=== PATIENT | female | born 1950 | race Caucasian/White ===

== ENCOUNTER 2017-10-22 22:38 | Observation (INO) | payer MEDICARE ==
[~2017-10-22] VITALS: Ht 167.6 cm; Wt 90.4 kg
[~2017-10-22 22:38] MED LIST: 1-ME1LIQ PO; AMBI12.5 PO; HYDR12.56 PO; PRED50 PO; RANI300T PO; TELM1TAB56 PO
[2017-10-22 22:40] VITALS: BP 128/60; PULSE 119; RESP 18; TEMP 97.9; O2SAT 97
[2017-10-22] MEDS ORDERED: AMBI12.5 PO (22:59)
[2017-10-22] MEDS ORDERED: MELO15TA20 PO (22:59)
[2017-10-22] MEDS ORDERED: AMLO5TAB2 PO (22:59)
[2017-10-22] MEDS ORDERED: HYDR12.57 PO (22:59)
[2017-10-22] MEDS ORDERED: SODIUM CHLOR 0.9% 1000 ML INJ 1,000 ML IV ONE (23:04)
--- NOTE | 2017-10-22 23:09 | PD ---
HPI Chief Complaint: GI Complaint Time Seen by Provider: 22:49 Travel History International Travel<30 days: No Contact w/Intl Traveler<30days: No Traveled to known affect area: No History of Present Illness HPI 67-year-old female presents to the emergency department by private transportation for complaint of nausea vomiting abdominal pain with diarrhea and headaches since 7 PM. Patient denies any dietary indiscretion well water ingestion or foreign travel. No recent antibiotic use. Spouse has had no similar symptoms. Sister recently returned from a cruise. Headache is not sudden onset thunderclap or worst ever. No respiratory illness symptoms no sore throat no earache no sinus pressure drainage no cough no congestion no shortness of breath and no chest pain. Patient has had bilious emesis no report of coffee-ground emesis or hematemesis and no melena or hematochezia. Patient also denies any flank pain; but has had some dysuria does not report any urinary frequency urgency or hematuria. No prior similar symptoms. No injury or fall. Patient states she felt completely well on Monday all day Monday and all day on Monday until 7 PM when symptoms began. Patient denies any fever or chills. Patient has taken no medications to assist with symptoms. No ibuprofen or acetaminophen. Patient is unable to identify exacerbating or alleviating factors. Patient does have history of hypertension and previous cholecystectomy. [facility] Past Medical History Narrative Medical Anemia arthritis dyslipidemia hypertension pancreatitis cholecystectomy anxiety depression hysterectomy breast augmentation cardiac catheterization; no tobacco ; nursing notes reviewed Anemia: Yes Arthritis: Yes Anxiety: Yes Depression: Yes Cardiac Catheterization: Yes Cardiovascular Problems: Yes (HTN) High Cholesterol: Yes Diminished Hearing: No Herniated Disk: Yes (LUMBAR) Hypertension: Yes Pancreatitis: Yes Tetanus Vaccination: < 5 Years Influenza Vaccination: Yes ?: Not Menopausal: Yes : 2 Para: 1 Past Surgical History Section: Yes Cholecystectomy: Yes Hysterectomy: Yes (Complete) Other Surgery: Yes (BREAST AUGMENTATION) Social History Alcohol Use: No Tobacco Use: No (QUIT 1991) Substance Use: No Allergies-Medications (Allergen,Severity, Reaction): Coded Allergies: No Known Allergies (Verified Adverse Reaction, Unknown, 10/22/17) Reported Meds & Prescriptions Reported Meds & Active Scripts Active Reported Meloxicam 15 Mg Tab 15 Mg PO DAILY Amlodipine (Amlodipine Besylate) 5 Mg Tab 5 Mg PO DAILY Ambien CR (Zolpidem Tartrate) 12.5 Mg Tab 12.5 Mg PO HS PRN Hydrochlorothiazide 12.5 Mg Cap 12.5 Mg PO DAILY Review of Systems Except as stated in HPI: all other systems reviewed are Neg General / Constitutional: No: Fever, Chills HENT: No: Congestion Cardiovascular: No: Chest Pain or Discomfort Respiratory: No: Shortness of Breath Gastrointestinal: Positive: Nausea, Vomiting, Diarrhea, Abdominal Pain Genitourinary: Positive: Dysuria Musculoskeletal: No: Myalgias, Arthralgias Skin: No Rash Neurologic: No: Weakness Psychiatric: No: Anxiety Hematologic/Lymphatic: No: Lymph Node Enlargement Physical Exam Narrative GENERAL: Well-developed nourished female no acute distress or respiratory distress SKIN: Warm and dry. HEAD: Normocephalic. EYES: No scleral icterus. No injection or drainage. NECK: Supple, trachea midline. No JVD or lymphadenopathy. CARDIOVASCULAR: Regular rate and rhythm without murmurs, gallops, or rubs. RESPIRATORY: Breath sounds equal bilaterally. No accessory muscle use. GASTROINTESTINAL: Abdomen soft, non-tender, well-healed cholecystectomy scar right upper quadrant, nondistended. MUSCULOSKELETAL: No cyanosis, or edema. BACK: Nontender without obvious deformity. No CVA tenderness. Data Data Last Documented VS Vital Signs Date Time Temp Pulse Resp B/P (MAP) Pulse Ox O2 Delivery O2 Flow Rate FiO2 10/23/17 01:44 98.8 92 18 139/63 (88) 96 Room Air Orders Orders Complete Blood Count With Diff (10/22/17 23:04) Comprehensive Metabolic Panel (10/22/17 23:04) Urinalysis - C+S If Indicated (10/22/17 23:04) Lipase (10/22/17 23:04) Iv Access Insert/Monitor (10/22/17 23:04) Ecg Monitoring (10/22/17 23:04) Oximetry (10/22/17 23:04) Ondansetron Inj (Zofran Inj) (10/22/17 23:15) Sodium Chlor 0.9% 1000 Ml Inj (Ns 1000 M (10/22/17 23:04) Sodium Chloride 0.9% Flush (Ns Flush) (10/22/17 23:15) Blood Culture (10/22/17 23:04) Enteric Path (Stool) (10/22/17 23:04) Lactic Acid (10/22/17 23:04) Ketorolac Inj (Toradol Inj) (10/22/17 23:15) Magnesium (Mg) (10/22/17 23:04) C Diff Toxin Pcr (10/22/17 23:24) Sodium Chlor 0.9% 1000 Ml Inj (Ns 1000 M (10/23/17 00:15) Ct Abd/Pel W Iv Contrast(Rout) (10/23/17 ) Sodium Chlor 0.9% 1000 Ml Inj (Ns 1000 M (10/23/17 01:30) Lactic Acid (10/23/17 01:23) Piperacil-Tazo 4.5 Gm Premix (Zosyn 4.5 (10/23/17 01:30) Iohexol 350 Inj (Omnipaque 350 Inj) (10/23/17 01:36) Labs Laboratory Tests Test 10/22/17 23:15 10/22/17 23:20 White Blood Count 14.0 TH/MM3 Red Blood Count 4.61 MIL/MM3 Hemoglobin 13.7 GM/DL Hematocrit 41.1 % Mean Corpuscular Volume 89.2 FL Mean Corpuscular Hemoglobin 29.8 PG Mean Corpuscular Hemoglobin Concent 33.4 % Red Cell Distribution Width 12.6 % Platelet Count 192 TH/MM3 Mean Platelet Volume 7.1 FL Neutrophils (%) (Auto) 85.9 % Lymphocytes (%) (Auto) 3.1 % Monocytes (%) (Auto) 6.1 % Eosinophils (%) (Auto) 2.8 % Basophils (%) (Auto) 2.1 % Neutrophils # (Auto) 12.0 TH/MM3 Lymphocytes # (Auto) 0.4 TH/MM3 Monocytes # (Auto) 0.9 TH/MM3 Eosinophils # (Auto) 0.4 TH/MM3 Basophils # (Auto) 0.3 TH/MM3 CBC Comment AUTO DIFF Differential Comment AUTO DIFF CONFIRMED Platelet Estimate NORMAL Platelet Morphology Comment NORMAL Red Cell Morphology Comment NORMAL Blood Urea Nitrogen 19 MG/DL Creatinine 1.00 MG/DL Random Glucose 173 MG/DL Total Protein 6.9 GM/DL Albumin 3.7 GM/DL Calcium Level 8.6 MG/DL Magnesium Level 1.8 MG/DL Alkaline Phosphatase 78 U/L Aspartate Amino Transf (AST/SGOT) 19 U/L Alanine Aminotransferase (ALT/SGPT) 28 U/L Total Bilirubin 0.3 MG/DL Sodium Level 143 MEQ/L Potassium Level 3.5 MEQ/L Chloride Level 109 MEQ/L Carbon Dioxide Level 25.9 MEQ/L Anion Gap 8 MEQ/L Estimat Glomerular Filtration Rate 55 ML/MIN Lactic Acid Level 2.6 mmol/L Lipase 202 U/L [facility] Medical Decision Making Medical Screen Exam Complete: Yes Emergency Medical Condition: Yes Medical Record Reviewed: Yes Interpretation(s) CBC & BMP Diagram 10/22/17 23:15 Total Protein 6.9, Albumin 3.7, Calcium Level 8.6, Magnesium Level 1.8, Alkaline Phosphatase 78, Aspartate Amino Transf (AST/SGOT) 19, Alanine Aminotransferase (ALT/SGPT) 28, Total Bilirubin 0.3 Vital Signs Date Time Temp Pulse Resp B/P (MAP) Pulse Ox O2 Delivery O2 Flow Rate FiO2 10/23/17 00:20 94 18 134/56 (82) 95 Room Air 10/22/17 23:45 93 18 133/56 (81) 98 Room Air 10/22/17 22:40 97.9 119 18 128/60 (82) 97 Lactic acid: 2.6, elevated Differential Diagnosis Gastroenteritis, food poisoning, viral syndrome, electrolyte disturbance, GI bleed, anemia, ACS, dehydration, pancreatitis, gastritis Narrative Course Patient placed on monitor IV access obtained specimens collected and sent for resulting patient administered 1 L normal saline Zofran 4 mg IV and Toradol 30 mg IV Patient produced a specimen that was briskly Hemoccult positive but not grossly bloody stool specimen sent for enteric pathogen and PCR C. difficile; briskly Hemoccult positive CT urinalysis results pending patient given additional liter of normal saline and repeat lactic acid ordered HemaPrompt Point of Care Internal Pos. & Neg. Controls: Passed Fecal Specimen Occult Blood: Positive Sepsis Criteria SIRS Criteria (2 or more): Heart rate over 90, WBC > 11281, < 4000 or > 10% bands Sepsis Criteria (SIRS+source): Infect source susp/known (GI-gastroenteritis) Severe Sepsis (+one): Lactate >2 Physician Communication Physician Communication discussed with [facility] MD Diagnosis Primary Impression: Abdominal pain Qualified Codes: R10.30 - Lower abdominal pain, unspecified Additional Impressions: Abdominal pain, vomiting, and diarrhea Sepsis Admitting Information Admitting Physician Requests: Observation Sophia Guerrero. MD Oct 22, 2017 23:09
[2017-10-22] MEDS ORDERED: SODIUM CHLORIDE 0.9% FLUSH 10 ML FLUSH IVF PRN (23:15)
[2017-10-22] MEDS ORDERED: ONDANSETRON HCL 4 MG/2 ML VIAL IV PUSH ONE (23:15)
[2017-10-22] MEDS ORDERED: KETOROLAC TROMETHAMINE 30 MG/ML (IVP) VIAL IV PUSH ONE (23:15)
[2017-10-22 23:45] VITALS: BP 133/56; PULSE 83; PULSE 93; RESP 18; O2SAT 98
[2017-10-22 23:46] LABS: CHLORIDE 109 MEQ/L (98-107); SODIUM (NA) 143 MEQ/L (136-145)
[2017-10-22 23:47] LABS: BASOPHIL # 0.3 TH/MM3 (0-0.2); BASOPHIL % 2.1 % (0.0-2.0); EOSINOPHIL # 0.4 TH/MM3 (0-0.4); EOSINOPHIL % 2.8 % (0.0-4.0); HEMATOCRIT 41.1 % (35.0-46.0); HEMOGLOBIN 13.7 GM/DL (11.6-15.3); LYMPH % 3.1 % (9.0-44.0); LYMPHOCYTE # 0.4 TH/MM3 (1.0-4.8); MEAN CELL VOLUME 89.2 FL (80.0-100.0); MEAN CORPUSCULAR HEMOGLOBIN 29.8 PG (27.0-34.0); MEAN CORPUSCULAR HGB CONC 33.4 % (32.0-36.0); MEAN PLATELET VOLUME 7.1 FL (7.0-11.0); MONO % 6.1 % (0.0-8.0); MONOCYTE # 0.9 TH/MM3 (0-0.9); NEUT % 85.9 % (16.0-70.0); PLATELET COUNT 192 TH/MM3 (150-450); RED BLOOD COUNT 4.61 MIL/MM3 (4.00-5.30); RED CELL DISTRIBUTION WIDTH 12.6 % (11.6-17.2)
[2017-10-22 23:50] LABS: ALBUMIN 3.7 GM/DL (3.4-5.0); BICARBONATE 25.9 MEQ/L (21.0-32.0); BLOOD UREA NITROGEN 19 MG/DL (7-18); CALCIUM 8.6 MG/DL (8.5-10.1); GLUCOSE,RANDOM 173 MG/DL (74-106); MAGNESIUM 1.8 MG/DL (1.5-2.5)
[2017-10-22 23:53] LABS: ALT (GPT) 28 U/L (10-53); AST (GOT) 19 U/L (15-37); GLOMERULAR FILTRATION RATE 55 ML/MIN (>89)
[2017-10-22 23:54] LABS: TOTAL BILIRUBIN ADULT 0.3 MG/DL (0.2-1.0)
[2017-10-22 23:55] LABS: TOTAL PROTEIN 6.9 GM/DL (6.4-8.2)
[2017-10-22 23:56] LABS: ALKALINE PHOSPHATASE 78 U/L (45-117)
[2017-10-23] VITALS (7 sets, daily range): BP systolic 131–162; BP diastolic 56–73; PULSE 83–97; RESP 16–20; TEMP 98.4–99.1; O2SAT 95–96
[2017-10-23] MEDS ORDERED: SODIUM CHLOR 0.9% 1000 ML INJ 1,000 ML IV ONE ×2 (00:15→01:30)
[2017-10-23] MEDS ORDERED: PIPERACIL-TAZO 4.5 GM PREMIX 100 ML IV ONE (01:30)
[2017-10-23] MEDS ORDERED: IOHEXOL 350 MG/ML 10 ML VIAL (for RAD DIAG) IVCONTRAST ONE (01:36)
--- NOTE | 2017-10-23 01:39 | RADRPT ---
EXAM DATE/TIME: 10/23/2017 01:18 [place] COMPARISON: No previous studies available for comparison. INDICATIONS : Nausea. Vomiting. Diarrhea. IV CONTRAST: 75 cc Omnipaque 350 (iohexol) IV ORAL CONTRAST: No oral contrast ingested. RADIATION DOSE: 16.91 CTDIvol (mGy) MEDICAL HISTORY : Pancreatitis. Hypertension. SURGICAL HISTORY : Cholecystectomy. section.Hysterectomy. ENCOUNTER: Initial ACUITY: 1 day PAIN SCALE: 2/10 LOCATION: upper quadrant lower quadrant TECHNIQUE: Volumetric scanning of the abdomen and pelvis was performed. Using automated exposure control and ad justment of the mA and/or kV according to patient size, radiation dose was kept as low as reasonably achievable to obtain optimal diagnostic quality images. DICOM format image data is available electro nically for review and comparison. FINDINGS: Lung bases are clear except for minimal dependent atelectasis. Mild fatty liver. Spleen, adrenals, ki dneys pancreas unremarkable. No free fluid. No bowel obstruction. No adenopathy. CONCLUSION: 1. No acute findings within the abdomen and pelvis. Mild fatty liver. Small hiatal hernia. Joe Canales MD on October 23, 2017 at 1:36 Board Certified Radiologist. This report was verified electronically.
[2017-10-23] MEDS ORDERED: SODIUM CHLOR 0.9% 1000 ML INJ 1,000 ML IV SCH (02:16)
[2017-10-23 02:18] LABS: BILIRUBIN, URINE NEG (NEG); BLOOD, URINE NEG (NEG); GLUCOSE,URINE NEG (NEG); KETONE, URINE NEG (NEG); NITRITE,URINE NEG (NEG); PH, URINE 5.5 (5.0-8.5); URINE COLOR YELLOW (YELLW/STRAW); URINE LEUKOCYTE ESTERASE NEG (NEG)
[2017-10-23 02:30] LABS: MUCUS URINE FEW /lpf (OCC); SQUAMOUS EPITHELIAL CELL URINE 0-5 /hpf (0-5)
[2017-10-23] MEDS ORDERED: LACTULOSE SYRUP 20 GM/30 ML CUP PO PRN (02:30)
[2017-10-23] MEDS ORDERED: ACETAMINOPHEN 325 MG TAB PO PRN ×2 (02:30→09:30)
[2017-10-23] MEDS ORDERED: BISACODYL 10 MG SUPP RECTAL PRN (02:30)
[2017-10-23] MEDS ORDERED: SENNOSIDES 8.6 MG TAB PO PRN (02:30)
[2017-10-23] MEDS ORDERED: SODIUM CHLORIDE 0.9% FLUSH 10 ML FLUSH IV FLUSH PRN (02:30)
[2017-10-23] MEDS ORDERED: NALOXONE HCL 0.4 MG/ML AMP IV PUSH PRN (02:30)
[2017-10-23] MEDS ORDERED: MORPHINE SULFATE 2 MG/ML SYRINGE IV PUSH PRN (02:30)
[2017-10-23] MEDS ORDERED: HEPARIN SODIUM - SQ 10,000 UNITS/ML VIAL SQ SCH ×2 (02:30→09:00)
[2017-10-23] MEDS ORDERED: MAGNESIUM HYDROXIDE SUSP 30 ML CUP PO PRN (02:30)
[2017-10-23 02:31] LABS: WBC, URINE 0-2 /hpf (0-5)
[2017-10-23] MEDS: ONDANSETRON HCL 4 MG/2 ML VIAL IVP PRN ×2 (03:32→09:31)
[2017-10-23] MEDS ORDERED: SODIUM CHLORIDE 0.9% FLUSH 10 ML FLUSH IV FLUSH SCH (09:00)
[2017-10-23] MEDS ORDERED: DOCUSATE SODIUM 50 MG/SENNA 8.6 MG TAB PO SCH (09:00)
[2017-10-23] MEDS ORDERED: ZOLPIDEM 12.5 MG PO PRN (11:30)
--- NOTE | 2017-10-23 11:47 | HHI.DCPOC ---
Discharge Care Plan Diagnosis: (1) Enteritis Goals to Promote Your Health * To prevent worsening of your condition and complications * To maintain your health at the optimal level Directions to Meet Your Goals Take your medications as prescribed Follow your dietary instruction Follow activity as directed Keep your appointments as scheduled Take your immunizations and boosters as scheduled If your symptoms worsen call your PCP, if no PCP go to Urgent Care Center or Emergency Room Smoking is Dangerous to Your Health. Avoid second hand smoke Call the 24-hour hour crisis hotline for domestic abuse at Magalis Dunn MD Oct 23, 2017 11:47
--- NOTE | 2017-10-23 11:53 | HHI.HP ---
[facility] Primary Care Physician Nick Hinojosa M.D. Admission Diagnosis abdominal pain/bloody diarrhea; sirs/sepsis Diagnoses: Chief Complaint: Diarrhea and vomiting Travel History International Travel<30 Days: No Contact w/Intl Traveler <30 Da: No Traveled to Known Affected Are: No History of Present Illness This patient is a 67-year-old female with a history of hypertension who came to the hospital complaining of acute onset of bloody stools with nausea and vomiting. Patient says this was going on acutely without any recent antibiotics or previous gastrointestinal issues. She says that there was a coworker who is also ill. She notes no fevers or chills. She came to the hospital when she could not keep fluids down. Since she has been here she has had no further episodes of nausea and vomiting or diarrhea. Her labs have been relatively stable except for slightly elevated white cell count as well as a mildly elevated lactic acid. Clinically the patient is greatly improved except for an headache. She thinks she is hungry and she has not eaten since she has been here. She would like to try to eat and go home if she is feeling well. Overnight she has been hydrated and her blood pressure appears quite stable. Review of Systems Constitutional: DENIES: Diaphoretic episodes, Fatigue, Fever, Weight gain, Weight loss, Chills, Dizziness, Change in appetite, Night Sweats Endocrine: DENIES: Abnorml menstrual pattern, Heat/cold intolerance, Polydipsia , Polyuria, Polyphagia Eyes: DENIES: Blurred vision, Diplopia, Eye inflammation, Eye pain, Vision loss , Photosensitivity, Double Vision Ears, nose, mouth, throat: DENIES: Tinnitus, Hearing loss, Vertigo, Nasal discharge, Oral lesions, Throat pain, Hoarseness, Ear Pain, Running Nose, Epistaxis, Sinus Pain, Toothache, Odynophagia Respiratory: DENIES: Apneas, Cough, Snoring, Wheezing, Hemoptysis, Sputum production, Shortness of breath Cardiovascular: DENIES: Chest pain, Palpitations, Syncope, Dyspnea on Exertion , PND, Lower Extremity Edema, Orthopnea, Claudication Gastrointestinal: COMPLAINS OF: Diarrhea, Nausea, Vomiting, DENIES: Abdominal pain, Black stools, Bloody stools, Constipation, Difficulty Swallowing, Anorexia Genitourinary: DENIES: Abnormal vaginal bleeding, Dysmenorrhea, Dyspareunia, Sexual dysfunction, Urinary frequency, Urinary incontinence, Urgency, Hematuria , Dysuria, Nocturia, Vaginal discharge Musculoskeletal: DENIES: Joint pain, Muscle aches, Stiffness, Joint Swelling, Back pain, Neck pain Hematologic/lymphatic: DENIES: Bruising, Lymphadenopathy Immunologic/allergic: DENIES: Eczema, Urticaria Psychiatric: DENIES: Anxiety, Confusion, Mood changes, Depression, Hallucinations, Agitation, Suicidal Ideation, Homicidal Ideation, Delusions Except as stated in HPI: all other systems reviewed are Neg Past Family Social History Past Medical History Orthopedic pain Hypertension Past Surgical History Breast augmentation Gallbladder Reported Medications Reviewed in the EMR Allergies: Coded Allergies: No Known Allergies (Verified Allergy, Unknown, 10/23/17) Active Ordered Medications Reviewed in the EMR Family History Father at 45 from coronary disease, mother at 59 from open heart issues Social History No tobacco or alcohol dependency, Physical Exam Vital Signs Vital Signs Date Time Temp Pulse Resp B/P (MAP) Pulse Ox O2 Delivery O2 Flow Rate FiO2 10/23/17 11:18 83 10/23/17 10:32 18 10/23/17 07:30 98.7 88 20 162/70 (100) 96 10/23/17 04:45 10/23/17 04:19 88 18 143/73 (96) 95 Room Air 10/23/17 03:37 98.4 97 16 10/23/17 01:44 98.8 92 18 139/63 (88) 96 Room Air 10/23/17 00:20 94 18 134/56 (82) 95 Room Air 10/22/17 23:45 93 18 133/56 (81) 98 Room Air 10/22/17 22:40 97.9 119 18 128/60 (82) 97 Physical Exam GENERAL: This is a well-nourished, well-developed patient, complaining of headache SKIN: No rashes, ecchymoses or lesions. Cool and dry. HEAD: Atraumatic. Normocephalic. No temporal or scalp tenderness. EYES: Pupils equal round and reactive. Extraocular motions intact. No scleral icterus. No injection or drainage. ENT: Nose without bleeding, purulent drainage or septal hematoma. Throat without erythema, tonsillar hypertrophy or exudate. Uvula midline. Airway patent. NECK: Trachea midline. No JVD or lymphadenopathy. Supple, nontender, no meningeal signs. CARDIOVASCULAR: Regular rate and rhythm without murmurs, gallops, or rubs. RESPIRATORY: Clear to auscultation. Breath sounds equal bilaterally. No wheezes , rales, or rhonchi. GASTROINTESTINAL: Abdomen soft, non-tender, nondistended. No hepato-splenomegaly , or palpable masses. No guarding. MUSCULOSKELETAL: Extremities without clubbing, cyanosis, or edema. No joint tenderness, effusion, or edema noted. No calf tenderness. Negative Homans sign bilaterally. NEUROLOGICAL: Awake and alert. Cranial nerves II through XII intact. Motor and sensory grossly within normal limits. Five out of 5 muscle strength in all muscle groups. Normal speech. Laboratory Laboratory Tests Test 10/22/17 23:15 10/22/17 23:20 10/23/17 01:30 White Blood Count 14.0 Red Blood Count 4.61 Hemoglobin 13.7 Hematocrit 41.1 Mean Corpuscular Volume 89.2 Mean Corpuscular Hemoglobin 29.8 Mean Corpuscular Hemoglobin Concent 33.4 Red Cell Distribution Width 12.6 Platelet Count 192 Mean Platelet Volume 7.1 Neutrophils (%) (Auto) 85.9 Lymphocytes (%) (Auto) 3.1 Monocytes (%) (Auto) 6.1 Eosinophils (%) (Auto) 2.8 Basophils (%) (Auto) 2.1 Neutrophils # (Auto) 12.0 Lymphocytes # (Auto) 0.4 Monocytes # (Auto) 0.9 Eosinophils # (Auto) 0.4 Basophils # (Auto) 0.3 CBC Comment AUTO DIFF Differential Comment AUTO DIFF CONFIRMED Platelet Estimate NORMAL Platelet Morphology Comment NORMAL Red Cell Morphology Comment NORMAL Blood Urea Nitrogen 19 Creatinine 1.00 Random Glucose 173 Total Protein 6.9 Albumin 3.7 Calcium Level 8.6 Magnesium Level 1.8 Alkaline Phosphatase 78 Aspartate Amino Transf (AST/SGOT) 19 Alanine Aminotransferase (ALT/SGPT) 28 Total Bilirubin 0.3 Sodium Level 143 Potassium Level 3.5 Chloride Level 109 Carbon Dioxide Level 25.9 Anion Gap 8 Estimat Glomerular Filtration Rate 55 Lactic Acid Level 2.6 2.2 Lipase 202 Stool C. difficile Toxin (PCR) NEGATIVE Stl C. difficile Toxin Epiderm 027 PRESUMPTIVE NEGATIVE Date/Time Source Procedure Growth Status 10/22/17 23:35 Blood Peripheral Aerobic Blood Culture - Preliminary NO GROWTH IN 1 DAY Resulted 10/22/17 23:35 Blood Peripheral Anaerobic Blood Culture - Preliminary NO GROWTH IN 1 DAY Resulted 10/22/17 23:20 Stool Stool Pending Received Result Diagram: 10/22/17 2315 10/22/17 2315 Imaging Last Impressions Abdomen/Pelvis CT 10/23/17 0000 Signed Impressions: Service Date/Time: Monday, October 23, 2017 01:18 - CONCLUSION: 1. No acute findings within the abdomen and pelvis. Mild fatty liver. Small hiatal hernia. Joe Canales MD Assessment and Plan Problem List: (1) Enteritis ICD Code: K52.9 - Noninfective gastroenteritis and colitis, unspecified Plan: Overall improved with IV hydration, will advance diet Discussed with patient and nursing team Likely discharge home with continues to remain stable We will repeat lactic acid Assessment and Plan Discharge home Activity unrestricted Diet Magalis Avery MD Oct 23, 2017 11:53
[2017-10-23] MEDS ORDERED: amLODIPine BESYLATE 5 MG TAB PO SCH (12:00)
[2017-10-24] MEDS ORDERED: MELOXICAM 15 MG TAB PO SCH (09:00)
== END 2017-10-23 13:03 | disposition home or self-care (01) ==
LOC: PHED 22:38 → PHEDA 10-23 02:20 → PHICU 10-23 03:23 → PH3A 10-23 07:45
PROVIDERS: ADMIT Hospitalist; ATTEND Hospitalist
DX: K52.9 Noninfective gastroenteritis and colitis, unspecified (principal); I10 Essential (primary) hypertension; R51 Headache; R30.0 Dysuria; E78.00 Pure hypercholesterolemia, unspecified; K76.0 Fatty (change of) liver, not elsewhere classified; K44.9 Diaphragmatic hernia without obstruction or gangrene; F41.9 Anxiety disorder, unspecified; F32.9 Major depressive disorder, single episode, unspecified; M19.90 Unspecified osteoarthritis, unspecified site; Z79.899 Other long term (current) drug therapy
CPT/HCPCS: 74177; 80053; 81001; 83605; 83690; 83735; 85025; 87040; 87493; 87506; 96361; 96365; 96375; 99285; G0378; J1885; J2270; J2405; J2543; J7030; Q9967